=== PATIENT | male | born 1980 | race African-American/Black ===

== ENCOUNTER 2022-05-06 19:56 | Emergency (ER) | payer OTHER ==
[2022-05-06 20:26] VITALS: RESP 15; TEMP 99.1; BMI 33.2
[2022-05-06 22:12] VITALS: BP 157/104; PULSE 86
== END 2022-05-06 22:15 | disposition home or self-care (01) ==
LOC: FER 19:56
DX: S29.012A Strain of muscle and tendon of back wall of thorax, initial encounter (principal); S39.012A Strain of muscle, fascia and tendon of lower back, initial encounter; S46.911A Strain of unspecified muscle, fascia and tendon at shoulder and upper arm level, right arm, initial encounter; S46.912A Strain of unspecified muscle, fascia and tendon at shoulder and upper arm level, left arm, initial encounter; V03.10XA Pedestrian on foot injured in collision with car, pick-up truck or van in traffic accident, initial encounter
CPT/HCPCS: 72070-TC-FY; 72100-TC-FY; 73030-TC-LT-FY; 73030-TC-RT-FY; 99284-25